=== PATIENT | female | born 1955 | race African-American/Black ===

== ENCOUNTER 2021-01-18 11:44 | Inpatient (IN) | payer OTHER ==
[~2021-01-18] VITALS: Ht 170.2 cm; Wt 87.8 kg
[2021-01-18 12:54] LABS: BASOPHILS % (AUTO) 0.5 % (0.0-2.0); EOSINOPHILS % (AUTO) 0.9 % (1.0-6.0); HEMATOCRIT 40.3 % (36-46); HEMOGLOBIN 13.3 g/dL (12.0-16.0); LYMPHOCYTES # (AUTO) 1.8 K/uL (1.0-4.8); LYMPHOCYTES % (AUTO) 19.9 % (22.0-44.0); MEAN CORPUSCULAR HEMOGLOBIN 29.6 pg (26.0-34.0); MEAN CORPUSCULAR VOLUME 90 fL (80-100); MONOCYTES # (AUTO) 0.5 K/uL (0.1-1.0); MONOCYTES % (AUTO) 5.1 % (2.0-9.0); NEUTROPHILS # (AUTO) 6.7 K/uL (1.8-7.7); NEUTROPHILS % (AUTO) 73.6 % (40.0-70.0); PLATELET COUNT (AUTO) 255 K/uL (150-450); RED BLOOD CELL COUNT(AUTO) 4.49 MIL/uL (4.00-5.20); RED CELL DISTRIBUTION WIDTH 13.9 % (11.5-14.5)
[2021-01-18 13:00] LABS: ANION GAP 9 mmol/L (8-16); CALCIUM, TOTAL 9.1 mg/dL (8.8-10.5); CARBON DIOXIDE 29 mmol/L (22-29); CHLORIDE 104 mmol/L (98-107); CREATININE 0.87 mg/dL (0.60-1.30); GLOMERULAR FILTR. RATE CALC > 60 mL/min (>60); GLUCOSE,RANDOM 387 mg/dL (70-110); POTASSIUM 3.9 mmol/L (3.5-5.1); SODIUM SERUM 142 mmol/L (136-145); UREA NITROGEN, BLOOD 13 mg/dL (7-18)
[2021-01-18] MEDS ORDERED: AZITHROMYCIN 500 MG/NS 250 ML IV ONE (13:00)
[2021-01-18] MEDS ORDERED: CefTRIAXone 1 GM/DEXTROSE 50 ML IV ONE (13:00)
[2021-01-18 13:08] LABS: ALANINE AMINOTRANSFERASE 16 U/L (12-78); ALBUMIN 3.1 g/dL (3.4-5.0); ALKALINE PHOSPHATASE 68 U/L (46-116); ASPARTATE AMINOTRANSFERASE 13 U/L (15-37); BILIRUBIN,TOTAL 0.2 mg/dL (0.1-1.0); CREATINE KINASE, TOTAL ONLY 49 U/L (26-192); TOTAL PROTEIN, SERUM 7.1 g/dL (6.4-8.2)
[2021-01-18 15:07] LABS: APPEARANCE,URINE CLOUDY (CLEAR); BILIRUBIN,URINE NEGATIVE (NEGATIVE); GLUCOSE, URINE (UA) >=1000 mg/dL (NEGATIVE); KETONES,URINE NEGATIVE (NEGATIVE); LEUKOCYTE ESTERASE ,URINE SMALL (NEGATIVE); NITRATE,URINE POSITIVE (NEGATIVE); OCCULT BLOOD,URINE TRACE (NEGATIVE); PH,URINE 5.5 (5.0-8.0); PROTEIN,URINE NEGATIVE (NEGATIVE); UROBILINOGEN,URINE 0.2 mg/dL (<=1.0)
[2021-01-18 15:17] LABS: AMPHET/METH SCREEN,URINE NEGATIVE (NEGATIVE); BARBITURATE SCREEN, URINE NEGATIVE (NEGATIVE); BENZODIAZEPINES SCREEN,URINE NEGATIVE (NEGATIVE); CANNABINOID SCREEN,URINE NEGATIVE (NEGATIVE); COCAINE SCREEN,URINE NEGATIVE (NEGATIVE); METHADONE SCREEN, URINE NEGATIVE (NEGATIVE); OPIATE SCREEN,URINE NEGATIVE (NEGATIVE)
[2021-01-18 15:19] LABS: PHENCYCLIDINE SCREEN,URINE NEGATIVE (NEGATIVE)
[2021-01-18 15:22] LABS: BACTERIA,URINE Many /HPF (None Seen); RBC,URINE 0-2 /HPF (0-2); SQUAMOUS EPITHELIAL CELL,UR Moderate /LPF (None Seen)
[2021-01-18] MEDS ORDERED: INSULIN REGULAR, HUMAN 100 UNITS/ML IVP ONE (16:15)
[2021-01-18] MEDS ORDERED: ASPIRIN 81 MG CHEWABLE TABLET PO ONE (16:15)
[2021-01-18] MEDS ORDERED: DEXTROSE 50%-WATER 25 GM/50 ML SYRINGE IVP PRN ×2 (16:15→18:45)
[2021-01-18] MEDS ORDERED: SODIUM CHLORIDE 0.9% 1,000 ML IV ONE (16:15)
[2021-01-18] MEDS ORDERED: ACETAMINOPHEN 325 MG TABLET PO PRN ×2 (16:15→18:30)
[2021-01-18] MEDS ORDERED: ONDANSETRON HCL 4 MG/2 ML VIAL IVP PRN ×2 (16:15→18:30)
[2021-01-18 16:29] LABS: GLUCOSE,POINT OF CARE 270 MG/DL (70-110)
[2021-01-18 16:50] LABS: COVID AG,FIA SOURCE NASOPHARYNGEAL
[2021-01-18] MEDS ORDERED: ALBUTEROL SULFATE 2.5 MG/0.5 ML NEB SOLUTION NEB PRN (18:30)
[2021-01-18] MEDS ORDERED: HYDROCODONE/ACETAMINOPHEN 5-325 MG TABLET PO PRN (18:30)
[2021-01-18] MEDS ORDERED: MORPHINE SULFATE 2 MG/ML SYRINGE IVP PRN (18:30)
[2021-01-18] MEDS ORDERED: MAGNESIUM HYDROXIDE SUSPENSION 30 ML UDCUP PO PRN (18:30)
[2021-01-18] MEDS ORDERED: ZOLPIDEM TARTRATE 5 MG TABLET PO PRN (18:30)
[2021-01-18] MEDS ORDERED: BISACODYL 10 MG RECTAL RECTAL SUPPOSITORY PR PRN (18:30)
[2021-01-18] MEDS ORDERED: IPRATROPIUM BROMIDE 0.5 MG/2.5 ML NEB SOLUTION NEB PRN (18:30)
[2021-01-18 18:57] LABS: GLUCOSE,POINT OF CARE 130 MG/DL (70-110)
[2021-01-18 20:08] VITALS: BP 168/88
[2021-01-18] MEDS: DOCUSATE SODIUM 100 MG CAPSULE PO SCH (20:39)
[2021-01-18] MEDS: INSULIN LISPRO 100 UNITS/ML SQ PRN (20:39)
[2021-01-18] MEDS ORDERED: AmLODIPine BESYLATE 10 MG TABLET PO ONE (22:00)
[2021-01-18 22:10] LABS: GLUCOMETER DEV NAME(LOC) 5N.1C; GLUCOSE,POINT OF CARE 156 MG/DL (70-110)
[2021-01-19] VITALS (9 sets, daily range): BP systolic 113–160; BP diastolic 69–83
[2021-01-19] MEDS: HEPARIN SODIUM,PORCINE 5,000 UNITS/ML VIAL SQ SCH ×5 (00:15→23:57)
[2021-01-19] MEDS: INSULIN LISPRO 100 UNITS/ML SQ PRN ×2 (06:28→17:34)
[2021-01-19 07:08] LABS: BASOPHILS % (AUTO) 0.7 % (0.0-2.0); EOSINOPHILS % (AUTO) 2.3 % (1.0-6.0); HEMATOCRIT 39.1 % (36-46); HEMOGLOBIN 12.9 g/dL (12.0-16.0); LYMPHOCYTES # (AUTO) 2.5 K/uL (1.0-4.8); LYMPHOCYTES % (AUTO) 29.7 % (22.0-44.0); MEAN CORPUSCULAR HEMOGLOBIN 29.7 pg (26.0-34.0); MEAN CORPUSCULAR VOLUME 90 fL (80-100); MONOCYTES # (AUTO) 0.5 K/uL (0.1-1.0); NEUTROPHILS # (AUTO) 5.1 K/uL (1.8-7.7); NEUTROPHILS % (AUTO) 61.3 % (40.0-70.0); PLATELET COUNT (AUTO) 238 K/uL (150-450); RED BLOOD CELL COUNT(AUTO) 4.34 MIL/uL (4.00-5.20); RED CELL DISTRIBUTION WIDTH 13.8 % (11.5-14.5)
[2021-01-19 07:15] LABS: ALANINE AMINOTRANSFERASE 15 U/L (12-78); ALBUMIN 2.9 g/dL (3.4-5.0); ALKALINE PHOSPHATASE 63 U/L (46-116); ANION GAP 11 mmol/L (8-16); ASPARTATE AMINOTRANSFERASE 11 U/L (15-37); BILIRUBIN,TOTAL 0.3 mg/dL (0.1-1.0); CALCIUM, TOTAL 8.5 mg/dL (8.8-10.5); CARBON DIOXIDE 29 mmol/L (22-29); CHLORIDE 110 mmol/L (98-107); CREATININE 0.68 mg/dL (0.60-1.30); GLOMERULAR FILTR. RATE CALC > 60 mL/min (>60); GLUCOSE,RANDOM 165 mg/dL (70-110); POTASSIUM 3.6 mmol/L (3.5-5.1); SODIUM SERUM 150 mmol/L (136-145); TOTAL PROTEIN, SERUM 6.7 g/dL (6.4-8.2); UREA NITROGEN, BLOOD 11 mg/dL (7-18)
[2021-01-19 07:41] LABS: GLUCOMETER DEV NAME(LOC) 5N.1C; GLUCOSE,POINT OF CARE 156 MG/DL (70-110)
[2021-01-19 08:00] LABS: HEMOGLOBIN A1C 12.6 % (3.8-5.6)
[2021-01-19] MEDS: DOCUSATE SODIUM 100 MG CAPSULE PO SCH (09:00)
[2021-01-19] MEDS: AmLODIPine BESYLATE 10 MG TABLET PO SCH (09:10)
[2021-01-19 12:53] LABS: GLUCOMETER DEV NAME(LOC) 5S.2B; GLUCOSE,POINT OF CARE 110 MG/DL (70-110)
[2021-01-19] MEDS ORDERED: CefTRIAXone 1 GM/DEXTROSE 50 ML IV SCH (13:00)
[2021-01-19] MEDS: DEXTROSE 5%-WATER 1,000 ML IV SCH (14:07)
[2021-01-19] MEDS: CefTRIAXone 1 GM/DEXTROSE 50 ML IV SCH (14:08)
[2021-01-19 17:57] LABS: GLUCOMETER DEV NAME(LOC) 5N.1C; GLUCOSE,POINT OF CARE 158 MG/DL (70-110)
[2021-01-19 20:55] LABS: GLUCOMETER DEV NAME(LOC) 5S.2B; GLUCOSE,POINT OF CARE 115 MG/DL (70-110)
[2021-01-20] MEDS: DEXTROSE 5%-WATER 1,000 ML IV SCH (02:16)
[2021-01-20 04:20] VITALS: BP 147/67
[2021-01-20] MEDS: INSULIN LISPRO 100 UNITS/ML SQ PRN ×3 (05:45→17:50)
[2021-01-20 06:22] LABS: BASOPHILS % (AUTO) 0.4 % (0.0-2.0); EOSINOPHILS % (AUTO) 2.7 % (1.0-6.0); HEMATOCRIT 38.2 % (36-46); HEMOGLOBIN 12.8 g/dL (12.0-16.0); LYMPHOCYTES # (AUTO) 2.8 K/uL (1.0-4.8); LYMPHOCYTES % (AUTO) 33.7 % (22.0-44.0); MEAN CORPUSCULAR HEMOGLOBIN 29.7 pg (26.0-34.0); MEAN CORPUSCULAR HGB CONC 33.4 G/dL (31.0-37.0); MEAN CORPUSCULAR VOLUME 89 fL (80-100); MONOCYTES # (AUTO) 0.5 K/uL (0.1-1.0); MONOCYTES % (AUTO) 6.6 % (2.0-9.0); NEUTROPHILS # (AUTO) 4.6 K/uL (1.8-7.7); NEUTROPHILS % (AUTO) 56.6 % (40.0-70.0); PLATELET COUNT (AUTO) 232 K/uL (150-450); RED CELL DISTRIBUTION WIDTH 13.6 % (11.5-14.5)
[2021-01-20 06:45] LABS: ALANINE AMINOTRANSFERASE 14 U/L (12-78); ALBUMIN 2.8 g/dL (3.4-5.0); ALKALINE PHOSPHATASE 60 U/L (46-116); ANION GAP 11 mmol/L (8-16); ASPARTATE AMINOTRANSFERASE 12 U/L (15-37); BILIRUBIN,TOTAL 0.4 mg/dL (0.1-1.0); CALCIUM, TOTAL 8.1 mg/dL (8.8-10.5); CARBON DIOXIDE 26 mmol/L (22-29); CHLORIDE 105 mmol/L (98-107); CREATININE 0.64 mg/dL (0.60-1.30); GLOMERULAR FILTR. RATE CALC > 60 mL/min (>60); GLUCOSE,RANDOM 159 mg/dL (70-110); POTASSIUM 3.2 mmol/L (3.5-5.1); SODIUM SERUM 142 mmol/L (136-145); TOTAL PROTEIN, SERUM 6.5 g/dL (6.4-8.2); UREA NITROGEN, BLOOD 7 mg/dL (7-18)
[2021-01-20 07:45] VITALS: BP 129/66
[2021-01-20] MEDS: HEPARIN SODIUM,PORCINE 5,000 UNITS/ML VIAL SQ SCH ×2 (07:50→16:22)
[2021-01-20] MEDS: AmLODIPine BESYLATE 10 MG TABLET PO SCH (07:50)
[2021-01-20 12:15] VITALS: BP 146/87
[2021-01-20] MEDS: CefTRIAXone 1 GM/DEXTROSE 50 ML IV SCH (12:42)
[2021-01-20] MEDS ORDERED: POTASSIUM CHLORIDE 20 MEQ ER TABLET PO ONE (15:30)
[2021-01-20 15:36] VITALS: BP_SYST 146; BP_SYST 160; BP_DIAS 87; BP_DIAS 90
[2021-01-20] MEDS ORDERED: ASPIRIN 81 MG CHEWABLE TABLET PO ONE (15:45)
[2021-01-20 16:29] LABS: CHOL/HDL RATIO 4.5 (3.9-5.7)
[2021-01-20 20:44] VITALS: BP 146/79
[2021-01-20 20:46] LABS: GLUCOMETER DEV NAME(LOC) 5N.1C; GLUCOSE,POINT OF CARE 147 MG/DL (70-110)
[2021-01-20] MEDS ORDERED: SIMVASTATIN 20 MG TABLET PO SCH (21:00)
[2021-01-20 23:36] LABS: GLUCOMETER DEV NAME(LOC) 5N.1C; GLUCOSE,POINT OF CARE 135 MG/DL (70-110)
[2021-01-20 23:39] LABS: GLUCOMETER DEV NAME(LOC) 5S.2B; GLUCOSE,POINT OF CARE 165 MG/DL (70-110)
[2021-01-20 23:39] LABS: GLUCOMETER DEV NAME(LOC) 5S.2B; GLUCOSE,POINT OF CARE 158 MG/DL (70-110)
[2021-01-21] MEDS: HEPARIN SODIUM,PORCINE 5,000 UNITS/ML VIAL SQ SCH ×2 (00:10→09:13)
[2021-01-21 00:30] VITALS: BP 121/56
[2021-01-21 05:41] VITALS: BP 124/64
[2021-01-21 06:19] LABS: BASOPHILS % (AUTO) 0.4 % (0.0-2.0); EOSINOPHILS % (AUTO) 1.7 % (1.0-6.0); HEMATOCRIT 38.4 % (36-46); HEMOGLOBIN 12.9 g/dL (12.0-16.0); LYMPHOCYTES % (AUTO) 24.7 % (22.0-44.0); MEAN CORPUSCULAR HEMOGLOBIN 29.6 pg (26.0-34.0); MEAN CORPUSCULAR HGB CONC 33.5 G/dL (31.0-37.0); MEAN CORPUSCULAR VOLUME 88 fL (80-100); MONOCYTES # (AUTO) 0.5 K/uL (0.1-1.0); MONOCYTES % (AUTO) 6.7 % (2.0-9.0); NEUTROPHILS # (AUTO) 5.4 K/uL (1.8-7.7); NEUTROPHILS % (AUTO) 66.5 % (40.0-70.0); PLATELET COUNT (AUTO) 259 K/uL (150-450); RED BLOOD CELL COUNT(AUTO) 4.35 MIL/uL (4.00-5.20); RED CELL DISTRIBUTION WIDTH 13.6 % (11.5-14.5)
[2021-01-21 06:45] LABS: ALANINE AMINOTRANSFERASE 11 U/L (12-78); ALBUMIN 2.9 g/dL (3.4-5.0); ALKALINE PHOSPHATASE 60 U/L (46-116); ANION GAP 13 mmol/L (8-16); ASPARTATE AMINOTRANSFERASE 8 U/L (15-37); BILIRUBIN,TOTAL 0.4 mg/dL (0.1-1.0); CALCIUM, TOTAL 8.6 mg/dL (8.8-10.5); CARBON DIOXIDE 25 mmol/L (22-29); CHLORIDE 107 mmol/L (98-107); CREATININE 0.66 mg/dL (0.60-1.30); GLOMERULAR FILTR. RATE CALC > 60 mL/min (>60); GLUCOSE,RANDOM 134 mg/dL (70-110); POTASSIUM 3.7 mmol/L (3.5-5.1); SODIUM SERUM 145 mmol/L (136-145); TOTAL PROTEIN, SERUM 6.8 g/dL (6.4-8.2); UREA NITROGEN, BLOOD 6 mg/dL (7-18)
[2021-01-21 08:58] VITALS: BP 133/64
[2021-01-21] MEDS ORDERED: ASPIRIN 81 MG CHEWABLE TABLET PO SCH (09:00)
[2021-01-21] MEDS: AmLODIPine BESYLATE 10 MG TABLET PO SCH (09:13)
[2021-01-21] MEDS: INSULIN LISPRO 100 UNITS/ML SQ PRN (11:34)
[2021-01-21] MEDS: CefTRIAXone 1 GM/DEXTROSE 50 ML IV SCH (12:23)
[2021-01-21] MEDS ORDERED: SODIUM CHLORIDE 0.9% 100 ML ONE (12:32)
[2021-01-21 12:39] VITALS: BP 151/73
[2021-01-21] MEDS ORDERED: AMOX1TAB16 PO (14:56)
[2021-01-21] MEDS ORDERED: ASPI1CPM21 PO (15:00)
[2021-01-21] MEDS ORDERED: ATOR20TA86 PO (15:00)
[2021-01-21] MEDS ORDERED: LOSA50TA37 PO (15:03)
[2021-01-21] MEDS ORDERED: GLYB2.5T6 PO (15:04)
[2021-01-21] MEDS ORDERED: ASPI-1450 PO (15:06)
[2021-01-21 16:53] LABS: GLUCOMETER DEV NAME(LOC) 5N.3; GLUCOSE,POINT OF CARE 152 MG/DL (70-110)
[2021-01-21 17:28] LABS: GLUCOMETER DEV NAME(LOC) 5N.1C; GLUCOSE,POINT OF CARE 142 MG/DL (70-110)
== END 2021-01-21 15:30 | disposition home or self-care (01) | DRG 52 ==
LOC: EMS 11:46 → 5S 19:29 → EMS 20:08
PROVIDERS: ADMIT Hospitalist; ATTEND Hospitalist
DX: G93.41 Metabolic encephalopathy (principal); E44.0 Moderate protein-calorie malnutrition; E87.0 Hyperosmolality and hypernatremia; N39.0 Urinary tract infection, site not specified; Z20.822 Contact with and (suspected) exposure to COVID-19; E11.65 Type 2 diabetes mellitus with hyperglycemia; F17.210 Nicotine dependence, cigarettes, uncomplicated; R41.3 Other amnesia; Z71.6 Tobacco abuse counseling; Z68.30 Body mass index [BMI] 30.0-30.9, adult
CPT/HCPCS: 70450; 70551; 71045; 80053; 80061; 81001; 82550; 82962; 83036; 84484; 85025; 87040; 87077; 87086; 87186; 93005; 93306; 93880; 99285; G0480; J0456; J0696; J1644; J1815; J7030; J7050; J7060; 36415-L1; 36415-TC

== ENCOUNTER 2023-04-15 05:30 | Emergency (ER) | payer OTHER ==
[~2023-04-15] VITALS: Ht 170.2 cm; Wt 82.4 kg
[~2023-04-15 05:30] MED LIST: AMOX1TAB16 PO; ASPI-1450 PO; ASPI1CPM21 PO; ATOR20TA PO; GLYB2.5T76 PO; LOSA-382 PO
[2023-04-15 06:27] VITALS: TEMP 98.6
[2023-04-15 06:41] LABS: GLUCOMETER DEV NAME(LOC) ER.6; GLUCOSE,POINT OF CARE 134 MG/DL (70-110)
[2023-04-15 07:15] VITALS: BP 129/65; PULSE 85; RESP 14
== END 2023-04-15 07:50 | disposition home or self-care (01) ==
LOC: EMS 05:30
DX: R53.1 Weakness (principal); F10.20 Alcohol dependence, uncomplicated; E11.9 Type 2 diabetes mellitus without complications; I10 Essential (primary) hypertension; F17.210 Nicotine dependence, cigarettes, uncomplicated; Y90.9 Presence of alcohol in blood, level not specified; W19.XXXA Unspecified fall, initial encounter; Y93.89 Activity, other specified; Y92.89 Other specified places as the place of occurrence of the external cause; Y99.8 Other external cause status
CPT/HCPCS: 82948; 82962; 99283; 99285